=== PATIENT | female | born 1975 | race Caucasian/White ===

== ENCOUNTER 2024-06-30 16:00 | Emergency (ER) | payer MEDICAID ==
[~2024-06-30] VITALS: Ht 154.9 cm; Wt 65.0 kg
[2024-06-30 16:07] VITALS: BP 156/78; PULSE 87; RESP 18; TEMP 97.7; O2SAT 99
[2024-06-30] MEDS ORDERED: DIPH25CA83 MT (17:03)
[2024-06-30] MEDS ORDERED: PRED10TA23 MT (17:03)
== END 2024-06-30 17:16 | disposition home or self-care (01) ==
LOC: ER 16:00
DX: R21 Rash and other nonspecific skin eruption (principal); R22.0 Localized swelling, mass and lump, head; Z88.0 Allergy status to penicillin
CPT/HCPCS: 99283

== ENCOUNTER 2024-08-22 19:45 | Emergency (ER) | payer BC, MEDICAID ==
[~2024-08-22] VITALS: Ht 152.4 cm; Wt 66.0 kg
[~2024-08-22 19:45] MED LIST: DIPH25CA83 MT; PRED10TA23 MT
[2024-08-22 19:54] VITALS: O2SAT 96
[2024-08-22 20:00] VITALS: BP 123/82; PULSE 95; RESP 16; TEMP 98.3; O2SAT 99
[2024-08-22] MEDS ORDERED: DIPH25CA83 MT (22:09)
[2024-08-22] MEDS ORDERED: PRED10TA23 MT (22:09)
[2024-08-22] MEDS: DEXAMETHASONE 10 MG/ML VIAL IM ONE (22:36)
== END 2024-08-22 22:37 | disposition home or self-care (01) ==
LOC: ER 19:45
DX: T78.40XA Allergy, unspecified, initial encounter (principal); R60.0 Localized edema; F41.9 Anxiety disorder, unspecified; Z88.8 Allergy status to other drugs, medicaments and biological substances; Z88.0 Allergy status to penicillin; Z79.52 Long term (current) use of systemic steroids; X58.XXXA Exposure to other specified factors, initial encounter
CPT/HCPCS: 99283; 96372; J1100

== ENCOUNTER 2024-10-19 10:28 | Emergency (ER) | payer BC, MEDICAID ==
[~2024-10-19] VITALS: Ht 152.4 cm; Wt 64.0 kg
[2024-10-19 11:10] VITALS: O2SAT 98
[2024-10-19 11:51] LABS: BASOPHILS % 1.3 % (0.0-2.0); EOSINOPHILS % 2.7 % (0.0-5.0); HEMATOCRIT. 38.1 % (36.0-48.0); HEMOGLOBIN. 12.4 g/dL (12.0-16.0); LYMPHOCYTES % 37.3 % (20.0-50.0); MEAN CORPUSCULAR HEMOGLOBIN 30.1 pg (28.0-32.0); MEAN CORPUSCULAR HGB CONC 32.6 g/dL (31.0-37.0); MEAN CORPUSCULAR VOLUME 92.3 fL (81.0-99.0); MEAN PLATELET VOLUME 7.2 fl (7.4-10.4); NEUTROPHILS % 47.7 % (40.0-76.0); PLATELET 385 x1000/uL (130-400); RED BLOOD CELL COUNT 4.13 mill/uL (4.2-5.4); RED CELL DISTRIBUTION WIDTH 13.5 % (11.6-14.6); WHITE BLOOD COUNT 8.2 x1000/uL (4.5-11.0)
[2024-10-19 11:57] LABS: CHLORIDE 104 mEq/L (98-107); POTASSIUM 4.3 mEq/L (3.5-5.1); SODIUM 143 mEq/L (136-145)
[2024-10-19 11:59] LABS: CALCIUM 9.6 mg/dL (8.7-10.4); CARBON DIOXIDE 29 mEq/L (21-32)
[2024-10-19 12:04] LABS: CREATININE 0.8 mg/dL (0.6-1.0); GLUCOSE 110 mg/dL (70-105); UREA NITROGEN BLOOD 9 mg/dL (9-23)
[2024-10-19 12:10] LABS: TROPONIN I HIGH SENSITIVITY < 4 ng/L (3.0-34)
[2024-10-19] MEDS: IBUPROFEN 600MG TABLET PO ONE (12:21)
[2024-10-19 12:24] VITALS: BP 148/98; PULSE 95; RESP 18; TEMP 37; O2SAT 98
[2024-10-19] MEDS ORDERED: IBUP-2029 MT (12:35)
== END 2024-10-19 13:12 | disposition home or self-care (01) ==
LOC: ER 10:28
DX: M79.602 Pain in left arm (principal); R07.89 Other chest pain; Z88.0 Allergy status to penicillin
CPT/HCPCS: 36415; 71045; 73030; 80048; 84484; 85025; 93005; 99285